=== PATIENT | female | born 1980 | race Caucasian/White ===

== ENCOUNTER → 2016-12-07 | Outpatient (REF) | payer OTHER | LOC: M LAB REF 18:03 | PROVIDERS: ATTEND Physician Assistant Medical | DX: N39.0 Urinary tract infection, site not specified (principal) ==

== ENCOUNTER → 2017-03-29 | Outpatient (REF) | payer OTHER | LOC: M SFHCWAGY 08:18 | PROVIDERS: ATTEND Nurse Practitioner Women's Health | DX: Z12.4 Encounter for screening for malignant neoplasm of cervix (principal) ==

== ENCOUNTER 2021-02-20 07:42 | Emergency (ER) | payer OTHER ==
[~2021-02-20] VITALS: Ht 165.1 cm; Wt 113.2 kg
[2021-02-20] MEDS ORDERED: LISI10TA22 (07:47)
[2021-02-20] MEDS ORDERED: ESSETAB4 PO (08:25)
[2021-02-20 08:27] LABS: BASO % 0.4 % (0.0-1.0); EOS # 0.2 10^3/uL (0.0-0.5); EOS % 3.4 % (0.0-3.0); HEMATOCRIT 40.3 % (36.0-47.0); HEMOGLOBIN 13.1 g/dl (12.0-15.5); LYMPH # 2.3 10^3/uL (1.5-5.0); LYMPH % 32.9 % (24.0-44.0); MEAN CORPUSCULAR HEMOGLOBIN 29.2 pg (27.0-33.0); MEAN CORPUSCULAR HGB CONC 32.5 g/dl (32.0-36.5); MONO # 0.4 10^3/uL (0.0-0.8); PLATELET COUNT, AUTOMATED 235 10^3/uL (150-450); RED BLOOD COUNT 4.48 10^6/uL (4.00-5.40)
[2021-02-20 08:35] VITALS: BP 156/87
[2021-02-20 08:37] LABS: INR 0.95; PROTHROMBIN TIME 12.9 SECONDS (12.5-14.3)
[2021-02-20 08:38] LABS: PARTIAL THROMBOPLASTIN TIME 29.4 SECONDS (24.2-38.5)
[2021-02-20 08:42] LABS: HCG, SERUM QUALITATIVE NEGATIVE (NEGATIVE)
[2021-02-20 08:55] LABS: ALBUMIN 3.5 GM/DL (3.2-5.2); ALT/SGPT 30 U/L (12-78); BILIRUBIN,DIRECT 0.1 MG/DL (0.0-0.2); BILIRUBIN,TOTAL 0.4 MG/DL (0.2-1.0); BLOOD UREA NITROGEN 10 MG/DL (7-18); CALCIUM LEVEL 8.3 MG/DL (8.5-10.1); CARBON DIOXIDE LEVEL 28 MEQ/L (21-32); CHLORIDE LEVEL 107 MEQ/L (98-107); CK-MB VALUE MASS 1.3 NG/ML (<3.6); CPK CREATINE PHOSPHOKINASE 170 U/L (26-192); CREATININE FOR GFR 0.61 MG/DL (0.55-1.30); FREE T4 0.81 NG/DL (0.76-1.46); GLOMERULAR FILTRATION RATE > 60.0 (>58); GLUCOSE, FASTING 91 MG/DL (70-100); LIPASE 133 U/L (73-393); MB/CK RELATIVE INDEX 0.76 (< OR =4); NT-PRO BNP 174 PG/ML (<125); POTASSIUM SERUM 4.2 MEQ/L (3.5-5.1); SODIUM LEVEL 139 MEQ/L (136-145); TROPONIN I < 0.02 NG/ML (< 0.10)
--- NOTE | 2021-02-20 09:42 | REP ---
INDICATION: CHEST PAIN. COMPARISON: 02/22/2015. TECHNIQUE: SINGLE PORTABLE AP VIEW OF THE CHEST WAS PERFORMED. FINDINGS: THERE IS NO ACUTE INFILTRATE OR PULMONARY EDEMA. LUNGS ARE CLEAR. HEART IS NOT SIGNIFICANTLY ENLARGED. MEDIASTINAL SILHOUETTE IS UNREMARKABLE. THE VISUALIZED OSSEOUS STRUCTURES ARE INTACT. IMPRESSION: NO ACUTE PULMONARY DISEASE. <Electronically signed by Ho Beltran > 02/20/21 0938
[2021-02-20 11:01] LABS: D-DIMER QUANT < 270 ng/ml (<500)
[2021-02-20] MEDS ORDERED: holter monitor (11:36)
--- NOTE | 2021-02-20 16:06 | ECGEPIP ---
[facility] - ED Test Date: 2021-02-20 Pat Name: BRITTON ANDERS Department: Room: - Gender: Female District Branch Manager: KRYSTIN : 1980 Requested By: Darlene Alexandre Order Number: [id number] Reading MD: Som Gayle Measurements Intervals [place] Rate: 56 P: 43 VA: 180 QRS: 10 QRSD: 86 T: 63 QT: 420 QTc: 405 Interpretive Statements Sinus bradycardia with sinus arrhythmia Minimal voltage criteria for LVH, may be normal variant ( R in aVL ) Comparison tracing not on file Electronically Signed on 02-20-2021 16:06:07 EDT by Som Gayle
--- NOTE | 2021-02-21 10:49 | ECGEPIP ---
[facility] - ED Test Date: 2021-02-20 Pat Name: BRITTON ANDERS Department: Room: - Gender: Female Medicine Technologist: KRYSTIN : 1980 Requested By: Darlene Alexandre Order Number: [id number] Reading MD: Marcin Zhou Measurements Intervals [place] Rate: 62 P: 44 CA: 162 QRS: 18 QRSD: 90 T: 55 QT: 422 QTc: 428 Interpretive Statements Sinus rhythm with premature atrial complexes Minimal voltage criteria for LVH, may be normal variant ( R in aVL ) SIMILAR TO PRIOR ON SAME DATE Electronically Signed on 02-21-2021 10:48:55 EDT by Marcin Zhou
== END 2021-02-20 12:06 | disposition home or self-care (01) ==
LOC: M ED 07:42
DX: R00.2 Palpitations (principal); I49.3 Ventricular premature depolarization; R00.1 Bradycardia, unspecified; I10 Essential (primary) hypertension; Z88.8 Allergy status to other drugs, medicaments and biological substances

== ENCOUNTER → 2021-02-21 | Outpatient (CLI) | payer OTHER ==
[~2021-02-21] MED LIST: ESSETAB4 PO; LISI10TA22; holter monitor
--- NOTE | 2021-02-23 00:23 | HOLTMON ---
[facility] Test Date: 2021-02-21 Pat Name: BRITTON ANDERS Department: Room: - Gender: Female Wall Covering Installer: BUCK : 1980 Requested By: Darlene Alexandre Order Number: [id number] Reading MD: Yan Luna Interpretive Statements Normal sinus rhythm with a maximum heart of 133 bpm noted at 8:03:16 AM and a minimum rate of 43 bpm at 5:53:18 AM. No activity reported with the maximum heart rate. Very rare premature isolated PACs. No supraventricular run. Rare premature isolated PVCs, including multiple short ventricular runs, longest made of 5 beats. No pause. Symptoms: None. Electronically Signed on 02-23-2021 0:22:49 EDT by Yan Luna
== END ==
LOC: M EKG 12:15
PROVIDERS: ATTEND Emergency Medicine
DX: R00.2 Palpitations (principal)

== ENCOUNTER 2021-10-26 08:03 | Outpatient (CLI) | payer OTHER ==
[~2021-10-26] VITALS: Ht 165.1 cm; Wt 108.9 kg
[~2021-10-26 08:03] MED LIST changes: +ACETAMINOPHEN TAB 650MG DOSE (2X325MG) PO ONE; +ALBUTEROL 90 MCG/ACT 8GM HFA INHALER INH PRN; +ALBUTEROL SULFATE 2.5 MG/0.5 ML INH NEB SOLN INH PRN; +CASIRIVIMAB/IMDEVIMAB 1,200 MG in NS 250 ML IV ONE; +EPINEPHrine INJ 1 MG/ML 1ML AMP IM PRN; +NS 1,000 ML IV SCH; +diphenhydrAMINE 50MG/ML VIAL (J1200) IV PRN; +methylPREDNISolone 125MG 2ML VIAL IV PRN
[2021-10-26 08:25] VITALS: BP 127/79
[2021-10-26 08:55] VITALS: BP 112/75
[2021-10-26 09:25] VITALS: BP 116/75
[2021-10-26 10:25] VITALS: BP 120/67
== END 2021-10-26 10:25 | disposition home or self-care (01) ==
LOC: M OPCLI4PR 08:03
PROVIDERS: ATTEND Nurse Practitioner Family
DX: U07.1 COVID-19 (principal); Z88.1 Allergy status to other antibiotic agents